=== PATIENT | female | born 1935 | race Caucasian/White ===

== ENCOUNTER → 2017-02-26 | Outpatient (CLI) | payer MEDICARE, OTHER ==
[~2017-02-26] MED LIST: ALEN1TAB48 PO; AMLO10TA2 PO; ASPI81CH37 CHEW; ASPI81TA82 PO; B COTAB3 PO; BIOT50005 PO; CALTTAB5 PO; COZA100T PO; HYDR-3533 PO; LORT7.5T3 PO; ROSU10 PO; VITA10003 PO; VITATAB11 PO
[2017-02-26 09:36] LABS: AUTOMATED NEUTROPHIL # 3.1 TH/MM3 (1.8-7.7); BASOPHIL # 0.1 TH/MM3 (0-0.2); BASOPHIL % 1.2 % (0.0-2.0); EOSINOPHIL # 0.3 TH/MM3 (0-0.4); EOSINOPHIL % 6.3 % (0.0-4.0); HEMATOCRIT 37.4 % (35.0-46.0); HEMO FLAGS DIFF FINAL; LYMPH % 21.5 % (9.0-44.0); LYMPHOCYTE # 1.1 TH/MM3 (1.0-4.8); MEAN CELL VOLUME 93.9 FL (80.0-100.0); MEAN CORPUSCULAR HEMOGLOBIN 32.5 PG (27.0-34.0); MEAN CORPUSCULAR HGB CONC 34.6 % (32.0-36.0); MONO % 7.9 % (0.0-8.0); NEUT % 63.1 % (16.0-70.0); PLATELET COUNT 261 TH/MM3 (150-450); RED BLOOD COUNT 3.99 MIL/MM3 (4.00-5.30); RED CELL DISTRIBUTION WIDTH 13.7 % (11.6-17.2); WHITE BLOOD COUNT 4.9 TH/MM3 (4.0-11.0)
[2017-02-26 09:58] LABS: ALKALINE PHOSPHATASE 84 U/L (45-117); ALT (GPT) 33 U/L (10-53); ANION GAP 8 MEQ/L (5-15); AST (GOT) 24 U/L (15-37); BICARBONATE 26.4 MEQ/L (21.0-32.0); BLOOD UREA NITROGEN 15 MG/DL (7-18); CHLORIDE 108 MEQ/L (98-107); GLOMERULAR FILTRATION RATE 75 ML/MIN (>89); GLUCOSE,FASTING 83 MG/DL (74-99); HDL CHOLESTEROL 70.7 MG/DL (40.0-60.0); LDL CHOLESTEROL 67 MG/DL (0-99); SODIUM (NA) 142 MEQ/L (136-145); TOTAL BILIRUBIN ADULT 0.8 MG/DL (0.2-1.0)
== END ==
LOC: PLAB 07:28
PROVIDERS: ATTEND Family Medicine
DX: E78.2 Mixed hyperlipidemia (principal); I10 Essential (primary) hypertension; Z79.899 Other long term (current) drug therapy
CPT/HCPCS: 36415; 80053; 80061; 85025

== ENCOUNTER 2017-03-14 19:49 | Emergency (ER) | payer MEDICARE, OTHER ==
[~2017-03-14] VITALS: Ht 168.9 cm; Wt 61.0 kg
[~2017-03-14 19:49] MED LIST changes: -ALEN1TAB48 PO; -AMLO10TA2 PO; -ASPI81CH37 CHEW; -BIOT50005 PO; -CALTTAB5 PO; -HYDR-3533 PO; -ROSU10 PO; -VITA10003 PO; -VITATAB11 PO
[2017-03-14 19:56] VITALS: BP 158/83; PULSE 108; RESP 20; TEMP 98.8; O2SAT 95
--- NOTE | 2017-03-14 20:57 | PD ---
HPI Chief Complaint: Injury Time Seen by Provider: 20:30 Travel History International Travel<30 days: No Contact w/Intl Traveler<30days: No Traveled to known affect area: No History of Present Illness HPI 81-year-old female presents to the emergency room for evaluation of right wrist pain and swelling after trip and fall earlier today. Patient tripped while vacuuming and fell backwards landing on her buttocks and an outstretched arm. She reports immediate pain in her wrist. She has been applying ice for today without relief of symptoms. She took an aspirin without relief. Pain is worse with range of motion. Localized to the radial aspect. Denies any other injuries. Denies paresthesias. Patient had left distal radial fracture in 2012 that was repaired by Dr. Dumont. She has followed up with Dr. Wilson in the past. Last ate and drank around 6:00 PM. History of hypertension. Denies any other chronic medical conditions. PFSH Past Medical History Cancer: Yes High Cholesterol: Yes Diminished Hearing: No Hypertension: Yes Triglycerides - High: Yes Tetanus Vaccination: Unknown Influenza Vaccination: Yes ?: Not Menopausal: Yes Past Surgical History Mastectomy: Yes (left) Pacemaker: No Social History Alcohol Use: Yes (social) Tobacco Use: No Substance Use: No Allergies-Medications (Allergen,Severity, Reaction): Coded Allergies: No Known Allergies (Verified , 01/18/13) Reported Meds & Prescriptions Reported Meds & Active Scripts Active Lortab (Hydrocodone-Acetaminophen) 5-325 Mg Tab 1 Tab PO Q6H PRN Reported Lortab 7.5/500 (Acetaminophen/Hydrocodone Bitart) Tab 1 Tab PO Q6HPRN FOR PAIN B Complex (Vitamin B Complex) Tab 1 Cap PO DAILY Cozaar (Losartan Potassium) 100 Mg Tab 100 Mg PO Aspir-81 (Aspirin) 81 Mg Tab 81 Mg PO DAILY Review of Systems Except as stated in HPI: all other systems reviewed are Neg Physical Exam Narrative GENERAL: Well-nourished, well-developed elderly female in no acute distress. Afebrile. Ambulatory. SKIN: Focused skin assessment warm/dry. Moderate to severe ecchymosis of the right wrist. HEAD: Normocephalic. EYES: No scleral icterus. No injection or drainage. NECK: Supple, trachea midline. No JVD or lymphadenopathy. CARDIOVASCULAR: Regular rate and rhythm without murmurs, gallops, or rubs. RESPIRATORY: Breath sounds equal bilaterally. No accessory muscle use. EXTREMITY: Right wrist extremely tender to palpation. Limited range of motion of the wrist secondary to pain. No pain with flexion or extension of the elbow. Moderate edema of the right wrist. 2+ radial pulse. Radial, ulnar, and median nerves intact. Data Data Last Documented VS Vital Signs Date Time Temp Pulse Resp B/P Pulse Ox O2 Delivery O2 Flow Rate FiO2 03/14/17 21:02 84 03/14/17 19:56 98.8 20 158/83 95 Orders Wrist, Complete ([id number]) (03/14/17 ) Acetamin-Hydrocod 325-5 Mg ([place] 5-325 (03/14/17 21:00) Splint Or Brace Apply/Monitor (03/14/17 21:53) [facility] Medical Decision Making Medical Screen Exam Complete: Yes Emergency Medical Condition: Yes Medical Record Reviewed: Yes Differential Diagnosis Fracture versus sprain versus strain versus contusion Narrative Course 81-year-old left-handed female presents to the emergency room for evaluation of right wrist pain after trip and fall earlier today. Patient fell backwards on an outstretched arm. Denies any other injuries. No elbow pain. Radial, ulnar , and median nerves intact. 2+ radial pulse. Pain with range of motion. X- ray shows Colles' fracture with associated ulnar styloid fracture. Patient given Lortab for pain. I spoke to the PA for the orthopedic physician solutions developer, Louis, who recommends sugar tong splint with follow-up next week. Patient discharged with Lortab and told to follow up or return for worsening symptoms. She understands and agrees to plan. Diagnosis Primary Impression: Colles' fracture of right radius Qualified Code: S52.531A - Closed Colles' fracture of right radius, initial encounter Referrals: Berry Campa MD Patient Instructions: General Instructions, Wrist Fracture in Adults (ED) Additional Instructions: Rest and drink plenty of fluids. Take Lortab as directed, as needed for pain. Do not drink alcohol or drive while taking this medication. Apply ice to the affected area for 20 minutes at a time, as needed for pain and swelling. Follow-up with a orthopedic physician within one week. Return to the emergency room for worsening symptoms. Med/Other Pt SpecificInfo: Prescription(s) given Scripts Hydrocodone-Acetaminophen (Lortab)5-325 Mg Tab1 Tab PO Q6H PRN (PAIN) #15 TAB Ref 0 Prov:Alban Damon MD 03/14/17 Disposition: 01 DISCHARGE HOME Condition: Stable Antoinette Barnes March 14, 2017 20:56
[2017-03-14] MEDS ORDERED: ACETAMINOPHEN/HYDROcodone 325 MG/5 MG TAB PO ONE (21:00)
[2017-03-14 21:02] VITALS: PULSE 84
--- NOTE | 2017-03-14 21:17 | RADHPO ---
EXAM DATE/TIME: 03/14/2017 20:35 [facility] COMPARISON: No previous studies available for comparison. INDICATIONS : Right wrist pain post fall this morning. MEDICAL HISTORY : None. SURGICAL HISTORY : None. ENCOUNTER: Initial ACUITY: 1 day PAIN SCORE: 8/10 LOCATION: Right wrist. FINDINGS: Three view examination of the right wrist demonstrates mild posterior displacement of distal radius f racture which extends intra-articular. There is also normal styloid fracture with overlying soft tiss ue swelling. No dislocation. CONCLUSION: 1. Mildly displaced Colles' fracture right wrist. Chris Brown MD on March 14, 2017 at 21:14 Board Certified Radiologist. This report was verified electronically.
[2017-03-14] MEDS ORDERED: HYDR-3533 PO (22:01)
[2017-03-14 22:15] VITALS: RESP 18
== END 2017-03-14 22:47 | disposition home or self-care (01) ==
LOC: PHEFT 19:49
DX: S52.531A Colles' fracture of right radius, initial encounter for closed fracture (principal); E78.2 Mixed hyperlipidemia; I10 Essential (primary) hypertension; W18.09XA Striking against other object with subsequent fall, initial encounter; Y93.E3 Activity, vacuuming; Y92.019 Unspecified place in single-family (private) house as the place of occurrence of the external cause; Y99.8 Other external cause status
CPT/HCPCS: 29125; 73110

== ENCOUNTER 2017-03-16 14:39 | Emergency (ER) | payer MEDICARE, OTHER ==
[~2017-03-16] VITALS: Ht 168.9 cm; Wt 61.9 kg
[~2017-03-16 14:39] MED LIST changes: +HYDR-3533 PO
[2017-03-16 14:41] VITALS: BP 137/66; PULSE 97; RESP 16; TEMP 98.3; O2SAT 94
[2017-03-16] MEDS ORDERED: BIOT50005 PO (14:53)
[2017-03-16] MEDS ORDERED: VITA10003 PO (14:53)
[2017-03-16] MEDS ORDERED: ASPI81CH37 CHEW (14:53)
[2017-03-16] MEDS ORDERED: ROSU10 PO (14:53)
[2017-03-16] MEDS ORDERED: VITATAB11 PO (14:53)
[2017-03-16] MEDS ORDERED: COZA100T PO (14:53)
[2017-03-16] MEDS ORDERED: ALEN1TAB48 PO (14:53)
[2017-03-16] MEDS ORDERED: CALTTAB5 PO (14:53)
[2017-03-16] MEDS ORDERED: AMLO10TA2 PO (14:53)
--- NOTE | 2017-03-16 15:01 | PD ---
HPI Chief Complaint: Wound/Suture/Staple Re-Check Time Seen by Provider: 14:57 Travel History International Travel<30 days: No Contact w/Intl Traveler<30days: No Traveled to known affect area: No History of Present Illness HPI 81-year-old female presents the emergency department status post recent fall with diagnosed Colles' fracture of the right wrist, complaining of increased swelling of the hand and fingers and pain in the wrist. Patient did not try adjusting the splint or Manuel wrap's prior to arrival. Patient is awaiting follow-up with orthopedist. Patient has no numbness or tingling of the fingers of the right hand. She has no other complaints. No known drug allergies. PFSH Past Medical History Hx Anticoagulant Therapy: No Cancer: Yes Cardiovascular Problems: Yes (HTN, CHOL) High Cholesterol: Yes Diabetes: No Diminished Hearing: Yes Hypertension: Yes Medical other: Yes (OSTEROPOROSIS) Immunizations Current: Yes Triglycerides - High: Yes Tetanus Vaccination: Unknown Influenza Vaccination: Yes ?: Not Menopausal: Yes Past Surgical History Mastectomy: Yes (left) Pacemaker: No Social History Alcohol Use: Yes (social) Tobacco Use: No Substance Use: No Allergies-Medications (Allergen,Severity, Reaction): Coded Allergies: No Known Allergies (Verified , 03/16/17) Reported Meds & Prescriptions Reported Meds & Active Scripts Active Lortab (Hydrocodone-Acetaminophen) 5-325 Mg Tab 1 Tab PO Q6H PRN Reported Biotin 5,000 Mcg Cap 5,000 Mcg PO DAILY Caltrate 600 (Calcium Carbonate) 1,500 Mg Tab 1 Tab PO DAILY Alendronate (Alendronate Sodium) 70 Mg Tab 70 Mg PO Q7D Crestor (Rosuvastatin Calcium) 10 Mg Tab 10 Mg PO DAILY Amlodipine (Amlodipine Besylate) 10 Mg Tab 10 Mg PO DAILY Vitamin D-3 (Cholecalciferol) 1,000 Unit Tab 1,000 Units PO DAILY Cozaar (Losartan Potassium) 100 Mg Tab 100 Mg PO DAILY Vitamin B Complex (B-Complex Vitamins) 1 Tab 1 Tab PO DAILY Aspirin Low Dose (Aspirin) 81 Mg Chew 81 Mg CHEW DAILY Review of Systems Except as stated in HPI: all other systems reviewed are Neg General / Constitutional: No: Fever Eyes: No: Visual changes HENT: No: Headaches Cardiovascular: No: Chest Pain or Discomfort Respiratory: No: Shortness of Breath Gastrointestinal: No: Abdominal Pain Genitourinary: No: Dysuria Musculoskeletal: No: Pain Skin: No Rash Neurologic: No: Weakness Psychiatric: No: Depression Endocrine: No: Polydipsia Hematologic/Lymphatic: No: Easy Bruising Physical Exam Narrative GENERAL: Patient appears in no acute distress. SKIN: Warm and dry. Normal color. Normal turgor. Right hand shows swelling of the dorsal distal aspect of the hand, but not fingers. There is mild ecchymosis in this region. HEAD: Atraumatic. Normocephalic. EYES: Pupils equal and round. No scleral icterus. No injection or drainage. ENT: No nasal bleeding or discharge. Mucous membranes pink and moist. NECK: Trachea midline. No JVD. CARDIOVASCULAR: Regular rate and rhythm. RESPIRATORY: No accessory muscle use. Clear to auscultation. Breath sounds equal bilaterally. GASTROINTESTINAL: Abdomen soft, non-tender, nondistended. Hepatic and splenic margins not palpable. MUSCULOSKELETAL: Extremities without clubbing, cyanosis, or edema. No obvious deformities. It appears that the sugar tong splint is not long enough as it only extends to the base of the hand, and the patient is still able to flex and extend the hand somewhat. Neurovascular exam is unremarkable. NEUROLOGICAL: Awake and alert. No obvious cranial nerve deficits. Motor grossly within normal limits. Five out of 5 muscle strength in the arms and legs. Normal speech. PSYCHIATRIC: Appropriate mood and affect; insight and judgment normal. Data Data Last Documented VS Vital Signs Date Time Temp Pulse Resp B/P Pulse Ox O2 Delivery O2 Flow Rate FiO2 03/16/17 14:41 98.3 97 16 137/66 94 MDM Medical Decision Making Medical Screen Exam Complete: Yes Emergency Medical Condition: Yes Differential Diagnosis Fall from slipping. Right Colles' fracture. Inadequate splint. Narrative Course Patient is medically stable at time of exam. Sugar tong splint is reapplied by ED staff. Sling is to be maintained. Patient follow with orthopedist as discussed previously. Patient can return with any problems or issues. Diagnosis Primary Impression: Colles' fracture of right radius Qualified Code: S52.531D - Closed Colles' fracture of right radius with routine healing, subsequent encounter Referrals: Kalyan Wilson MD Patient Instructions: General Instructions, How to Use a Sling (GEN), Splint Care (ED) Med/Other Pt SpecificInfo: No Change to Meds Disposition: 01 DISCHARGE HOME Condition: Stable Kenroy Martinez March 16, 2017 15:01
== END 2017-03-16 15:18 | disposition home or self-care (01) ==
LOC: PHEFT 14:39
DX: S52.531A Colles' fracture of right radius, initial encounter for closed fracture (principal); W01.0XXA Fall on same level from slipping, tripping and stumbling without subsequent striking against object, initial encounter
CPT/HCPCS: 29125

== ENCOUNTER → 2017-08-27 | Outpatient (CLI) | payer MEDICARE, OTHER ==
[~2017-08-27] MED LIST changes: +ALEN1TAB48 PO; +AMLO10TA2 PO; +ASPI81CH37 CHEW; -ASPI81TA82 PO; -B COTAB3 PO; +BIOT50005 PO; +CALTTAB5 PO; -LORT7.5T3 PO; +ROSU10 PO; +VITA10003 PO; +VITATAB11 PO
[2017-08-27 14:01] LABS: BASOPHIL # 0.1 TH/MM3 (0-0.2); BASOPHIL % 1.1 % (0.0-2.0); EOSINOPHIL # 0.3 TH/MM3 (0-0.4); EOSINOPHIL % 4.9 % (0.0-4.0); HEMO FLAGS DIFF FINAL; LYMPH % 17.8 % (9.0-44.0); MEAN CORPUSCULAR HEMOGLOBIN 32.8 PG (27.0-34.0); MEAN CORPUSCULAR HGB CONC 34.2 % (32.0-36.0); MONO % 6.9 % (0.0-8.0); NEUT % 69.3 % (16.0-70.0); PLATELET COUNT 265 TH/MM3 (150-450); RED BLOOD COUNT 4.17 MIL/MM3 (4.00-5.30); RED CELL DISTRIBUTION WIDTH 13.2 % (11.6-17.2); WHITE BLOOD COUNT 5.7 TH/MM3 (4.0-11.0)
[2017-08-27 14:30] LABS: ANION GAP 7 MEQ/L (5-15); AST (GOT) 23 U/L (15-37); BICARBONATE 24.7 MEQ/L (21.0-32.0); BLOOD UREA NITROGEN 17 MG/DL (7-18); CHLORIDE 107 MEQ/L (98-107); GLOMERULAR FILTRATION RATE 74 ML/MIN (>89); GLUCOSE,FASTING 79 MG/DL (74-99); POTASSIUM 4.1 MEQ/L (3.5-5.1); SODIUM (NA) 139 MEQ/L (136-145)
[2017-08-27 14:35] LABS: ALKALINE PHOSPHATASE 85 U/L (45-117); ALT (GPT) 32 U/L (10-53); HDL CHOLESTEROL 68.1 MG/DL (40.0-60.0); LDL CHOLESTEROL 72 MG/DL (0-99)
== END ==
LOC: PLAB 08:01
PROVIDERS: ATTEND Family Medicine
DX: E78.2 Mixed hyperlipidemia (principal); I10 Essential (primary) hypertension; Z79.899 Other long term (current) drug therapy
CPT/HCPCS: 36415; 80053; 80061; 85025

== ENCOUNTER → 2017-09-21 | Outpatient (CLI) | payer MEDICARE, OTHER ==
[~2017-09-21] MED LIST changes: -ASPI81CH37 CHEW; +ASPI81CH6 CHEW
== END ==
LOC: PLAB 11:01
PROVIDERS: ATTEND Orthopaedic Surgery Sports Medicine
DX: M81.0 Age-related osteoporosis without current pathological fracture (principal); M85.9 Disorder of bone density and structure, unspecified; E55.9 Vitamin D deficiency, unspecified
CPT/HCPCS: 36415; 82306; 82310; 84100

== ENCOUNTER → 2017-10-06 | Outpatient (CLI) | payer MEDICARE, OTHER | LOC: PLAB 07:46 | PROVIDERS: ATTEND Orthopaedic Surgery Sports Medicine | DX: M81.0 Age-related osteoporosis without current pathological fracture (principal); E55.9 Vitamin D deficiency, unspecified; M85.9 Disorder of bone density and structure, unspecified | CPT/HCPCS: 36415; 82306 ==

== ENCOUNTER → 2018-02-02 | Outpatient (CLI) | payer MEDICARE, OTHER ==
[2018-02-02 10:28] LABS: ALBUMIN 3.6 GM/DL (3.4-5.0)
[2018-02-02 10:33] LABS: CHOLESTEROL/ HDL RATIO 2.35 RATIO; DIRECT BILIRUBIN ADULT 0.2 MG/DL (0.0-0.2); HDL CHOLESTEROL 67.5 MG/DL (40.0-60.0); INDIRECT BILIRUBIN 0.7 MG/DL (0.0-0.8); TOTAL BILIRUBIN ADULT 0.9 MG/DL (0.2-1.0); TOTAL PROTEIN 7.1 GM/DL (6.4-8.2)
== END ==
LOC: PLAB 07:44
PROVIDERS: ATTEND Family Medicine
DX: E78.2 Mixed hyperlipidemia (principal); Z79.899 Other long term (current) drug therapy
CPT/HCPCS: 36415; 80061; 80076